=== PATIENT | female | born 1990 | race Caucasian/White ===

== ENCOUNTER 2017-02-17 19:50 | Emergency (ER) | payer OTHER | END 2017-02-17 22:21 | disposition home or self-care (01) | LOC: FTE 19:50 | DX: J32.9 Chronic sinusitis, unspecified (principal) | CPT/HCPCS: 99283; Z7502 ==

== ENCOUNTER 2018-03-05 12:05 | Outpatient (CLI) | payer OTHER ==
[2018-03-05 13:02] LABS: ADD MAN DIFF? NO
[2018-03-05 13:05] LABS: BASOPHILS % 0.3 % (0.0-2.0); EOSINOPHILS % 0.1 % (0.0-7.0); HEMOGLOBIN 11.6 g/dl (12.0-16.0); LYMPHOCYTES % 27.7 % (15.0-51.0); MEAN CORPUSCULAR HEMOGLOBIN 28.3 pg (29.0-33.0); MEAN CORPUSCULAR HGB CONC 33.1 g/dl (32.0-37.0); MEAN CORPUSCULAR VOLUME 85.4 fl (82.0-101.0); MEAN PLATELET VOLUME 12.5 fl (7.4-10.4); MONOCYTE # 0.5 10^3/ul (0.3-0.9); MONOCYTES % 7.5 % (0.0-11.0); NEUTROPHIL # 4.6 10^3/ul (1.6-7.5); NEUTROPHILS % 64.1 % (39.0-77.0); PLATELET COUNT 198 10^3/UL (140-415); RED CELL DISTRIBUTION WIDTH 13.1 % (11.5-14.5)
[2018-03-05 13:05] LABS: WHITE BLOOD COUNT 7.2 10^3/ul (4.8-10.8)
[2018-03-05 13:22] LABS: ALBUMIN 3.6 g/dl (3.3-4.9); ALBUMIN/GLOBULIN RATIO 1.16; ALKALINE PHOSPHATASE 149 IU/L (42-121); ANION GAP 8 (5-13); ASPARTATE AMINO TRANSFERASE 20 IU/L (15-46); BILIRUBIN,INDIRECT 0.1 mg/dl (0-1.1); BILIRUBIN,TOTAL 0.1 mg/dl (0.2-1.3); BLOOD UREA NITROGEN 13 mg/dl (7-20); CALCIUM 9.5 mg/dl (8.4-10.2); CARBON DIOXIDE 19 mmol/L (21-31); CHLORIDE 108 mmol/L (97-110); CREATININE 0.57 mg/dl (0.44-1.00); Estimated GFR > 60 mL/min (>60); GLUCOSE 107 mg/dl (70-220); POTASSIUM 4.1 mmol/L (3.5-5.1); SODIUM 135 mmol/L (135-144); TOTAL PROTEIN 6.7 g/dl (6.1-8.1); URIC ACID 5.4 mg/dl (3.1-7.9)
[2018-03-05 13:24] LABS: INR 0.93; PARTIAL THROMBOPLASTIN TIME 24.2 Sec (23.0-35.0); PROTIME 12.6 Sec (11.9-14.9)
[2018-03-05 13:33] LABS: ALANINE AMINOTRANSFERASE < 6 IU/L (13-69)
[2018-03-05 13:47] LABS: ADD UMIC NO; UR ASCORBIC ACID NEGATIVE (NEGATIVE); UR BILIRUBIN (Dip) NEGATIVE (NEGATIVE); UR BLOOD (Dip) NEGATIVE (NEGATIVE); UR CLARITY CLEAR (CLEAR); UR COLOR STRAW (YELLOW); UR GLUCOSE (Dip) NEGATIVE (NEGATIVE); UR KETONES (Dip) NEGATIVE (NEGATIVE); UR LEUKOCYTE ESTERASE (Dip) NEGATIVE Leu/ul (NEGATIVE); UR NITRITE (Dip) NEGATIVE (NEGATIVE); UR SPECIFIC GRAVITY (Dip) 1.005 (1.003-1.030); UR TOTAL PROTEIN (Dip) NEGATIVE (NEGATIVE); UR UROBILINOGEN (Dip) NEGATIVE (NEGATIVE)
== END 2018-03-05 16:59 | disposition home or self-care (01) ==
LOC: OBT 12:05 → L-D 12:05 → OBT 16:59
DX: O24.419 Gestational diabetes mellitus in pregnancy, unspecified control (principal); Z3A.37 37 weeks gestation of pregnancy
CPT/HCPCS: 80053; 81003; 84560; 85025; 85384; 85610; 85730

== ENCOUNTER 2018-03-09 23:53 | Inpatient (IN) | payer OTHER ==
[2018-03-10] MEDS: OXYTOCIN 30 UNITS/LR 500 ML IV ×4 (00:20→10:48)
[2018-03-10] MEDS: LACTATED RINGER'S 1,000 ML IV (00:23)
[2018-03-10] MEDS ORDERED: OXYTOCIN 30 UNITS/LR 500 ML IV ×2 (00:30→01:00)
[2018-03-10] MEDS ORDERED: CARBOPROST 250 MCG INJ IM ×2 (00:30→01:00)
[2018-03-10] MEDS ORDERED: MISOPROSTOL 200 MCG TAB PR ×2 (00:30→01:00)
[2018-03-10] MEDS ORDERED: LIDOCAINE 1% (MPF) 30 ML INJ INJ (00:30)
[2018-03-10] MEDS ORDERED: METHYLERGONOVINE 0.2 MG INJ IM ×2 (00:30→01:00)
[2018-03-10] MEDS: LACTATED RINGER'S 1,000 ML IV* ×2 (00:48→08:48)
[2018-03-10] MEDS: IBUPROFEN 600 MG TAB PO ×5 (00:51→23:56)
[2018-03-10] MEDS ORDERED: HYDROCODONE/APAP (5/325) TAB PO (01:00)
[2018-03-10 01:16] LABS: ADD MAN DIFF? NO
[2018-03-10 01:23] LABS: WHITE BLOOD COUNT 9.7 10^3/ul (4.8-10.8)
[2018-03-10 01:23] LABS: BASOPHILS % 0.2 % (0.0-2.0); EOSINOPHILS # 0.1 10^3/ul (0.0-0.5); EOSINOPHILS % 0.9 % (0.0-7.0); HEMATOCRIT 37.5 % (37.0-47.0); HEMOGLOBIN 12.3 g/dl (12.0-16.0); LYMPHOCYTES # 4.5 10^3/ul (0.8-2.9); LYMPHOCYTES % 46.3 % (15.0-51.0); MEAN CORPUSCULAR HEMOGLOBIN 28.1 pg (29.0-33.0); MEAN CORPUSCULAR HGB CONC 32.8 g/dl (32.0-37.0); MEAN CORPUSCULAR VOLUME 85.6 fl (82.0-101.0); MEAN PLATELET VOLUME 12.6 fl (7.4-10.4); MONOCYTE # 0.7 10^3/ul (0.3-0.9); MONOCYTES % 6.9 % (0.0-11.0); NEUTROPHIL # 4.4 10^3/ul (1.6-7.5); NEUTROPHILS % 45.4 % (39.0-77.0); PLATELET COUNT 193 10^3/UL (140-415); RED BLOOD COUNT 4.38 10^6/ul (4.20-5.40); RED CELL DISTRIBUTION WIDTH 13.3 % (11.5-14.5)
[2018-03-10 01:37] LABS: INR 0.89; PROTIME 12.1 Sec (11.9-14.9); PT RATIO 0.9
[2018-03-10 01:38] LABS: PARTIAL THROMBOPLASTIN TIME 22.4 Sec (23.0-35.0)
[2018-03-10 01:47] LABS: ALANINE AMINOTRANSFERASE 10 IU/L (13-69); ALBUMIN 3.9 g/dl (3.3-4.9); ALBUMIN/GLOBULIN RATIO 1.11; ALKALINE PHOSPHATASE 171 IU/L (42-121); ANION GAP 14 (5-13); ASPARTATE AMINO TRANSFERASE 25 IU/L (15-46); BILIRUBIN,INDIRECT 0.2 mg/dl (0-1.1); BILIRUBIN,TOTAL 0.2 mg/dl (0.2-1.3); BLOOD UREA NITROGEN 16 mg/dl (7-20); CALCIUM 9.3 mg/dl (8.4-10.2); CARBON DIOXIDE 20 mmol/L (21-31); CHLORIDE 101 mmol/L (97-110); CREATININE 0.69 mg/dl (0.44-1.00); Estimated GFR > 60 mL/min (>60); GLUCOSE 132 mg/dl (70-220); POTASSIUM 3.9 mmol/L (3.5-5.1); SODIUM 135 mmol/L (135-144); TOTAL PROTEIN 7.4 g/dl (6.1-8.1); URIC ACID 6.3 mg/dl (3.1-7.9)
[2018-03-10 02:17] LABS: HEPATITIS B SURFACE ANTIGEN NEGATIVE (NEGATIVE)
[2018-03-10] MEDS: GUAIFENESIN 20 MG/ML 5ML CUP PO ×2 (04:13→17:36)
[2018-03-10 14:59] LABS: RAPID PLASMA REAGIN NONREACTIVE (NR)
[2018-03-10] MEDS: LANOLIN HPA 1 PKT TOP (17:31)
[2018-03-10] MEDS: ACCU-CHEK XX (20:05)
[2018-03-10] MEDS ORDERED: GLUCAGON 1 MG INJ IM (21:30)
[2018-03-10] MEDS ORDERED: GLUCOSE GEL 15 GRAM TUBE PO ×2 (21:30)
[2018-03-10] MEDS ORDERED: GLUCOSE GEL 15 GRAM TUBE BUCCAL (21:30)
[2018-03-10] MEDS ORDERED: DEXTROSE 50% 50 ML SYRINGE IV ×2 (21:30)
[2018-03-11] MEDS: GUAIFENESIN 20 MG/ML 5ML CUP PO ×2 (00:36→19:53)
[2018-03-11] MEDS: IBUPROFEN 600 MG TAB PO ×3 (05:43→17:30)
[2018-03-11] MEDS ORDERED: LIDOCAINE 2% (SDV) 5 ML INJ (07:00)
[2018-03-11 07:30] LABS: ADD MAN DIFF? NO
[2018-03-11] MEDS: metFORMIN (XR) 500 MG TAB PO (07:35)
[2018-03-11 07:36] LABS: WHITE BLOOD COUNT 7.9 10^3/ul (4.8-10.8)
[2018-03-11 07:36] LABS: BASOPHILS % 0.1 % (0.0-2.0); EOSINOPHILS # 0.1 10^3/ul (0.0-0.5); EOSINOPHILS % 1.1 % (0.0-7.0); HEMATOCRIT 29.6 % (37.0-47.0); HEMOGLOBIN 9.7 g/dl (12.0-16.0); LYMPHOCYTES % 38.4 % (15.0-51.0); MEAN CORPUSCULAR HEMOGLOBIN 28.4 pg (29.0-33.0); MEAN CORPUSCULAR HGB CONC 32.8 g/dl (32.0-37.0); MEAN CORPUSCULAR VOLUME 86.5 fl (82.0-101.0); MEAN PLATELET VOLUME 12.7 fl (7.4-10.4); MONOCYTE # 0.4 10^3/ul (0.3-0.9); MONOCYTES % 5.6 % (0.0-11.0); NEUTROPHIL # 4.3 10^3/ul (1.6-7.5); NEUTROPHILS % 54.4 % (39.0-77.0); PLATELET COUNT 136 10^3/UL (140-415); RED BLOOD COUNT 3.42 10^6/ul (4.20-5.40); RED CELL DISTRIBUTION WIDTH 13.5 % (11.5-14.5)
[2018-03-11] MEDS: LACTATED RINGER'S 1,000 ML IV (09:12)
[2018-03-11] MEDS ORDERED: INFLUENZA VIRUS VACCINE 0.5 ML (DISPENSING) IM* (10:00)
[2018-03-11] MEDS ORDERED: PROPOFOL 20 ML (14:30)
[2018-03-11] MEDS ORDERED: ROCURONIUM 50 MG INJ (14:32)
[2018-03-11] MEDS ORDERED: FENTAnyl 50 MCG/ML VIAL ×2 (14:32→15:33)
[2018-03-11] MEDS ORDERED: ONDANSETRON 4 MG INJ (14:44)
[2018-03-11] MEDS ORDERED: DEXAMETHASONE 4 MG/ML 5 ML INJ (14:44)
[2018-03-11] MEDS: BUPIVACAINE 0.5%/EPI (SDV) 30 ML INJ (14:54)
[2018-03-11] MEDS ORDERED: KETOROLAC 30 MG INJ (15:28)
[2018-03-11] MEDS ORDERED: CEFAZOLIN 1 GM INJ (15:28)
[2018-03-11] MEDS ORDERED: GLYCOPYRROLATE 0.4 MG INJ (15:30)
[2018-03-11] MEDS ORDERED: NEOSTIGMINE 3 MG/3 ML SYRINGE ×2 (15:30)
[2018-03-11] MEDS ORDERED: LACTATED RINGER'S 1,000 ML IV (15:39)
[2018-03-11] MEDS ORDERED: ALBUTEROL 0.083% (NEB) 2.5 MG/3 ML AMP HHN (16:00)
[2018-03-11] MEDS ORDERED: LABETALOL HCL 20MG INJ IV (16:00)
[2018-03-11] MEDS ORDERED: OXYCODONE/ACETAMINOPHEN (5/325) TAB PO ×2 (16:00)
[2018-03-11] MEDS ORDERED: BUTORPHANOL 2 MG INJ IM (16:00)
[2018-03-11] MEDS ORDERED: MEPERIDINE 25 MG INJ IV (16:00)
[2018-03-11] MEDS ORDERED: EPHEDrine SULFATE 50 MG/5 ML SYG IV (16:00)
[2018-03-11] MEDS ORDERED: HYDROmorphONE 1 MG/5 ML IV SYRINGE IV ×3 (16:00)
[2018-03-11] MEDS ORDERED: hydrALAzine 20 MG INJ IV (16:00)
[2018-03-11] MEDS ORDERED: DIPHENHYDRAMINE 50 MG INJ IV (16:00)
[2018-03-11] MEDS ORDERED: FENTAnyl 50 MCG/ML VIAL IV ×3 (16:00)
[2018-03-11] MEDS ORDERED: ONDANSETRON 4 MG INJ IV (16:00)
[2018-03-11] MEDS: VANCOMYCIN 1 GM (PMX) 250 ML IVPB (16:30)
[2018-03-11] MEDS: KETOROLAC 60 MG INJ IM (16:32)
[2018-03-11] MEDS ORDERED: ACETAMINOPHEN 325 MG TAB PO (17:00)
[2018-03-12] MEDS ORDERED: DIPHTH/TET/ACEL PERTUSS (ADULT) 0.5 ML VIAL IM* (09:00)
== END 2018-03-11 20:20 | disposition home or self-care (01) | DRG 798 ==
LOC: OBT 23:53 → L-D 23:54 → PP1 03-10 02:25
PROVIDERS: Obstetrics & Gynecology
PROC: 10E0XZZ Delivery of Products of Conception, External Approach (ICD-10-PCS; principal; 2018-03-11 14:30)
PROC: 0UB70ZZ Excision of Bilateral Fallopian Tubes, Open Approach (ICD-10-PCS; 2018-03-11 14:30)
PROC: 0HQ9XZZ Repair Perineum Skin, External Approach (ICD-10-PCS; 2018-03-11 14:30)
PROC: 4A1HXCZ Monitoring of Products of Conception, Cardiac Rate, External Approach (ICD-10-PCS; 2018-03-11 14:30)
DX: O24.429 Gestational diabetes mellitus in childbirth, unspecified control (principal); Z37.0 Single live birth; O70.0 First degree perineal laceration during delivery; Z3A.38 38 weeks gestation of pregnancy; Z30.2 Encounter for sterilization
CPT/HCPCS: 80053; 82962; 84560; 85025; 85610; 85730; 86592; 86850; 86900; 86901; 87340; 88302